=== PATIENT | male | born 1945 | race Caucasian/White ===

== ENCOUNTER 2017-02-20 14:55 | Outpatient (CLI) | payer SELFPAY | END 2017-02-20 23:59 | disposition critical access hospital (66) | DX: R42 Dizziness and giddiness (principal); K92.0 Hematemesis | CPT/HCPCS: A0425; A0429 ==

== ENCOUNTER 2017-02-20 15:14 | Emergency (ER) | payer SELFPAY ==
[2017-02-20] MEDS ORDERED: SODIUM CHLORIDE 0.9% 1,000 ML IV ONE (15:29)
[2017-02-20] MEDS ORDERED: CIPROFLOXACIN 400 MG/200 ML 200 ML IV ONE ×2 (16:04→17:15)
[2017-02-20] MEDS ORDERED: VANCOMYCIN INJ 1 GM in SODIUM CHLORIDE 0.9% 250 ML IV STA (16:04)
[2017-02-20] MEDS ORDERED: PIPERACILLIN/TAZOBACTAM 4.5 GM in SODIUM CHLORIDE 0.9% MINIBAG 100 ML IV STA (16:04)
[2017-02-20] MEDS ORDERED: ELECTROLYTE-A SOLUTION 1,000 ML IV ONE ×2 (16:07→16:13)
[2017-02-20] MEDS ORDERED: IOPAMIDOL-300 100 ML VIAL IVP ONE (17:00)
[2017-02-20] MEDS ORDERED: VANCOMYCIN 1 GM VIAL ONE (17:50)
== END 2017-02-20 20:20 | disposition short-term general hospital (02) ==
DX: R16.0 Hepatomegaly, not elsewhere classified (principal); E87.2 Acidosis; D72.829 Elevated white blood cell count, unspecified; D64.9 Anemia, unspecified
CPT/HCPCS: 36415; 51701; 71010; 74177; 80053; 81001; 82140; 83605; 83690; 83880; 84484; 85025; 85610; 85730; 87040; 93005; 93010; 96361; 96365; 96366; 96368; 96375; 99285; 99291; J3370; Q9967

== ENCOUNTER 2017-02-20 20:21 | Outpatient (CLI) | payer SELFPAY | END 2017-02-20 23:59 | disposition short-term general hospital (02) | DX: K92.0 Hematemesis (principal); E86.0 Dehydration | CPT/HCPCS: A0425; A0426 ==